=== PATIENT | female | born 1990 | race African-American/Black ===

== ENCOUNTER 2021-02-14 08:23 | Emergency (ER) | payer OTHER ==
[2021-02-14 08:31] VITALS: BP 104/70; PULSE 94; TEMP 97; BMI 34.4
[2021-02-14] MEDS ORDERED: ACETAMINOPHEN 500 MG TABLET (FP) PO ONE (08:56)
[2021-02-14] MEDS ORDERED: ACETAMINOPHEN 325 MG TABLET (FP) ONE (09:01)
== END 2021-02-14 09:40 | disposition home or self-care (01) ==
LOC: JER 08:23
DX: R60.0 Localized edema (principal)
CPT/HCPCS: 99283-25

== ENCOUNTER 2021-05-05 13:45 | Inpatient (IN) | payer OTHER ==
[2021-05-05] MEDS ORDERED: DINOPROSTONE 10 MG VAGINAL SUPPOSITORY VG ONE (14:15)
[2021-05-05 14:54] VITALS: BMI 36.9
[2021-05-05 15:24] LABS: BASO % 0.3 % (0-2.0); EOS % 0.8 % (0-4.5); HEMATOCRIT 36.4 % (32.4-45.2); HEMOGLOBIN 12.4 GM/dL (10.7-15.3); LYMPH % 25.1 % (8-40); MCH 31.5 pg (25.7-33.7); MCHC 34.2 g/dl (32.0-36.0); MEAN CELL VOLUME 92.1 fl (80-96); MEAN PLT VOLUME 7.9 fl (7.5-11.1); MONO % 16.7 % (3.8-10.2); NEUT % 57.1 % (42.8-82.8); PLATELET COUNT 237 10^3/uL (134-434); RBC 3.96 M/mm3 (3.60-5.2); RDW 14.3 % (11.6-15.6); WHITE BLOOD COUNT 7.3 K/mm3 (4.0-10.0)
[2021-05-05 15:33] LABS: INR 0.91 (0.83-1.09); PROTHROMBIN TIME (PATIENT) 10.5 SEC (9.7-13.0)
[2021-05-05 15:35] LABS: ACTIVATED PTT 23.3 SECONDS (25.2-36.5)
[2021-05-05 15:46] LABS: BLOOD UREA NITROGEN 14.6 mg/dL (7-18); CALCIUM 9.2 mg/dL (8.5-10.1)
[2021-05-05 15:50] LABS: CREATININE 0.7 mg/dL (0.55-1.3)
[2021-05-05 18:04] LABS: COCAINE, UR NEGATIVE (NEGATIVE); METHADONE, UR NEGATIVE (NEGATIVE)
[2021-05-05 18:06] LABS: PHENCYCLIDINE,URINE NEGATIVE (NEGATIVE); URINE BARBITURATES NEGATIVE (NEGATIVE); URINE BENZODIAZEPINES NEGATIVE (NEGATIVE)
[2021-05-05 18:07] LABS: OPIATES, URI NEGATIVE (NEGATIVE); URINE AMPHETAMINES NEGATIVE (NEGATIVE)
[2021-05-05 19:13] LABS: ALBUMIN 2.9 g/dl (3.4-5.0)
[2021-05-05 19:15] LABS: URIC ACID 5.4 mg/dL (2.6-7.2)
[2021-05-05 19:17] LABS: BILIRUBIN,DIRECT 0.1 mg/dL (0.0-0.2)
[2021-05-05 19:18] LABS: BILIRUBIN,TOTAL 0.2 mg/dL (0.2-1); TOT PROT 6.5 g/dl (6.4-8.2)
[2021-05-05 19:29] LABS: URINE APPEARANCE CLEAR; URINE BILIRUBIN NEGATIVE (NEGATIVE); URINE COLOR YELLOW; URINE GLUCOSE (UA) NEGATIVE (NEGATIVE); URINE KETONE NEGATIVE (NEGATIVE); URINE LEUK ESTERASE NEGATIVE (NEGATIVE); URINE NITRITE NEGATIVE (NEGATIVE); URINE PROTEIN NEGATIVE (NEGATIVE); URINE UROBILINOGEN 0.2 mg/dL (0.2-1.0)
[2021-05-05] MEDS: DEXTROSE 5%-LACTATED RINGERS 1,000 ML IV SCH (20:00)
[2021-05-05 20:06] LABS: RETICULOCYTES 3.53 % (0.5-1.5)
[2021-05-05 20:21] LABS: URIC ACID 5.1 mg/dL (2.6-7.2)
[2021-05-06] MEDS ORDERED: DINOPROSTONE 10 MG VAGINAL SUPPOSITORY VG ONE (07:15)
[2021-05-06] MEDS: DEXTROSE 5%-LACTATED RINGERS 1,000 ML IV SCH (19:50)
[2021-05-06] MEDS ORDERED: OXYTOCIN 20 UNITS in 0.9% NS 20 UNIT/1,000 ML INFUS.BAG IV ONE (21:52)
[2021-05-06] MEDS ORDERED: morphine SULFATE/PF 1 MG/2 ML (2cc Syringe - QUVA) ONE (21:53)
[2021-05-06] MEDS ORDERED: CLINDAMYCIN PHOSPHATE 600 MG/4 ML VIAL ONE (22:15)
[2021-05-06] MEDS ORDERED: ONDANSETRON 4 MG/2 ML VIAL ONE (22:29)
[2021-05-06] MEDS ORDERED: OXYTOCIN 10 UNITS/ML VIAL ONE (23:07)
[2021-05-06] MEDS ORDERED: PROPOFOL 20 ML ONE ×2 (23:16→23:33)
[2021-05-06 23:32] LABS: CORD BASE EXCESS -3.8 mmol/L (0-2); CORD PCO2 53.5 mmHg (30-78); CORD pH 7.269 (7.14-7.44)
[2021-05-06 23:33] LABS: CORD BASE EXCESS -5.1 mmol/L (0-2); CORD HCO3 22.7 mmHg (20-29); CORD PCO2 52.1 mmHg (30-78); CORD pH 7.257 (7.14-7.44)
[2021-05-07] MEDS ORDERED: METHYLERGONOVINE MALEATE 0.2 MG/1 ML AMP IM PRN (00:06)
[2021-05-07] MEDS ORDERED: ACETAMINOPHEN 325 MG TABLET (FP) PO PRN (00:06)
[2021-05-07] MEDS ORDERED: ONDANSETRON 4 MG/2 ML VIAL IVPUSH PRN (00:07)
[2021-05-07] MEDS ORDERED: OXYTOCIN 20 UNITS in 0.9% NS 20 UNIT/1,000 ML INFUS.BAG IV SCH (00:15)
[2021-05-07] MEDS ORDERED: OXYTOCIN 20 UNITS in 0.9% NS 20 UNIT/1,000 ML INFUS.BAG IV ONE (01:06)
[2021-05-07] MEDS ORDERED: KETOROLAC TROMETHAMINE 30 MG/1 ML VIAL IVPUSH PRN (02:15)
[2021-05-07] MEDS: CLINDAMYCIN 600MG PREMIX IVPB 600 MG/50 ML BAG IVPB SCH ×4 (02:22→23:42)
[2021-05-07] MEDS: ACETAMINOPHEN 1000 MG/100 ML BAG IVPB PRN ×3 (03:20→22:33)
[2021-05-07] MEDS: DEXTROSE 5%-LACTATED RINGERS 1,000 ML IV SCH ×2 (03:56→17:45)
[2021-05-07] MEDS ORDERED: oxyCODONE HCL 5 MG TABLET PO PRN (12:06)
[2021-05-07] MEDS: SIMETHICONE 80 MG TAB.CHEW (FP) PO PRN (14:02)
[2021-05-07] MEDS: oxyCODONE HCL 5 MG TABLET PO PRN ×2 (16:26→16:57)
[2021-05-07 23:48] LABS: BASO % 0.1 % (0-2.0); HEMATOCRIT 34.7 % (32.4-45.2); HEMOGLOBIN 11.8 GM/dL (10.7-15.3); LYMPH % 7.4 % (8-40); MCH 31.4 pg (25.7-33.7); MCHC 33.9 g/dl (32.0-36.0); MEAN CELL VOLUME 92.6 fl (80-96); MEAN PLT VOLUME 7.6 fl (7.5-11.1); MONO % 7.2 % (3.8-10.2); NEUT % 85.3 % (42.8-82.8); PLATELET COUNT 224 10^3/uL (134-434); RBC 3.74 M/mm3 (3.60-5.2); RDW 14.3 % (11.6-15.6); WHITE BLOOD COUNT 14.7 K/mm3 (4.0-10.0)
[2021-05-08 00:10] LABS: ALBUMIN 2.2 g/dl (3.4-5.0); BLOOD UREA NITROGEN 5.3 mg/dL (7-18)
[2021-05-08 00:13] LABS: CREATININE 0.7 mg/dL (0.55-1.3)
[2021-05-08 00:14] LABS: BILIRUBIN,TOTAL 0.5 mg/dL (0.2-1); TOT PROT 5.5 g/dl (6.4-8.2)
[2021-05-08] MEDS: CLINDAMYCIN 600MG PREMIX IVPB 600 MG/50 ML BAG IVPB SCH ×4 (03:56→22:00)
[2021-05-08] MEDS: LACTATED RINGERS SOLUTION 1,000 ML/1,000 ML INFUS.BAG IV SCH ×2 (05:00→23:40)
[2021-05-08] MEDS: ACETAMINOPHEN 1000 MG/100 ML BAG IVPB PRN ×3 (05:06→23:41)
[2021-05-08] MEDS: SIMETHICONE 80 MG TAB.CHEW (FP) PO PRN ×2 (05:28→18:00)
[2021-05-08 09:06] LABS: BASO % 0.2 % (0-2.0); HEMATOCRIT 35.3 % (32.4-45.2); HEMOGLOBIN 12.1 GM/dL (10.7-15.3); LYMPH % 7.2 % (8-40); MCH 32.1 pg (25.7-33.7); MCHC 34.3 g/dl (32.0-36.0); MEAN CELL VOLUME 93.3 fl (80-96); MEAN PLT VOLUME 7.2 fl (7.5-11.1); MONO % 8.4 % (3.8-10.2); NEUT % 84.2 % (42.8-82.8); PLATELET COUNT 210 10^3/uL (134-434); RBC 3.78 M/mm3 (3.60-5.2); RDW 14.5 % (11.6-15.6)
[2021-05-08 09:32] LABS: ALBUMIN 2.2 g/dl (3.4-5.0); BLOOD UREA NITROGEN 4.9 mg/dL (7-18); CALCIUM 8.7 mg/dL (8.5-10.1)
[2021-05-08 09:36] LABS: CREATININE 0.7 mg/dL (0.55-1.3)
[2021-05-08 09:37] LABS: BILIRUBIN,TOTAL 0.7 mg/dL (0.2-1); TOT PROT 5.6 g/dl (6.4-8.2)
[2021-05-09] MEDS: CLINDAMYCIN 600MG PREMIX IVPB 600 MG/50 ML BAG IVPB SCH ×4 (04:12→22:00)
[2021-05-09] MEDS: ACETAMINOPHEN 1000 MG/100 ML BAG IVPB PRN (09:03)
[2021-05-09] MEDS: DEXTROSE 5%-LACTATED RINGERS 1,000 ML IV SCH (09:44)
[2021-05-09] MEDS ORDERED: oxyCODONE HCL 5 MG TABLET PO PRN (10:32)
[2021-05-09] MEDS ORDERED: AZTREONAM 1 GM in DEXTROSE 5%-WATER - 50 ML IVPB SCH ×3 (10:45→18:00)
[2021-05-09] MEDS: AZTREONAM 1 GM in DEXTROSE 5%-WATER - 50 ML IVPB SCH ×2 (12:23→19:36)
[2021-05-09] MEDS: MULTIVITAMINS (DAILY MVI) TABLET (FP) PO SCH (13:52)
[2021-05-09] MEDS: IBUPROFEN 600 MG TABLET (FP) PO PRN (19:53)
[2021-05-10] MEDS: AZTREONAM 1 GM in DEXTROSE 5%-WATER - 50 ML IVPB SCH ×3 (03:51→17:50)
[2021-05-10] MEDS: CLINDAMYCIN 600MG PREMIX IVPB 600 MG/50 ML BAG IVPB SCH ×4 (04:38→22:45)
[2021-05-10 09:52] LABS: BASO % 0.1 % (0-2.0); EOS % 1.3 % (0-4.5); HEMATOCRIT 35.6 % (32.4-45.2); HEMOGLOBIN 12.2 GM/dL (10.7-15.3); LYMPH % 10.3 % (8-40); MCHC 34.4 g/dl (32.0-36.0); MEAN PLT VOLUME 7.3 fl (7.5-11.1); MONO % 10.7 % (3.8-10.2); NEUT % 77.6 % (42.8-82.8); PLATELET COUNT 252 10^3/uL (134-434); RBC 3.83 M/mm3 (3.60-5.2); RDW 14.4 % (11.6-15.6); WHITE BLOOD COUNT 9.9 K/mm3 (4.0-10.0)
[2021-05-10] MEDS: IBUPROFEN 600 MG TABLET (FP) PO PRN ×2 (10:40→16:31)
[2021-05-10] MEDS: MULTIVITAMINS (DAILY MVI) TABLET (FP) PO SCH (10:40)
[2021-05-10] MEDS: SIMETHICONE 80 MG TAB.CHEW (FP) PO PRN (16:31)
[2021-05-11] MEDS: AZTREONAM 1 GM in DEXTROSE 5%-WATER - 50 ML IVPB SCH ×2 (02:14→09:18)
[2021-05-11] MEDS: IBUPROFEN 600 MG TABLET (FP) PO PRN (03:17)
[2021-05-11] MEDS: SIMETHICONE 80 MG TAB.CHEW (FP) PO PRN (03:17)
[2021-05-11 04:52] VITALS: TEMP 98.2
[2021-05-11] MEDS: CLINDAMYCIN 600MG PREMIX IVPB 600 MG/50 ML BAG IVPB SCH ×2 (05:12→10:03)
[2021-05-11 11:22] VITALS: BP 114/74; PULSE 97
[2021-05-11] MEDS: MULTIVITAMINS (DAILY MVI) TABLET (FP) PO SCH ×2 (11:27→11:52)
== END 2021-05-11 15:44 | disposition home or self-care (01) | DRG 540 ==
LOC: JLDR 13:45 → J3W 05-07 03:27
PROVIDERS: ADMIT Obstetrics & Gynecology; ATTEND Obstetrics & Gynecology
PROC: 10D00Z1 Extraction of Products of Conception, Low, Open Approach (ICD-10-PCS; principal; 2021-05-07)
DX: O48.0 Post-term pregnancy (principal); O61.9 Failed induction of labor, unspecified; O75.2 Pyrexia during labor, not elsewhere classified; Z3A.41 41 weeks gestation of pregnancy; Z37.0 Single live birth
CPT/HCPCS: 36415; 36600; 71046-TC-FY; 80048; 80053; 80076; 80307; 81003; 82803; 82977; 83010; 84450; 84460; 84550; 85025; 85032; 85045; 85610; 85730; 86780; 86850; 86900; 86901; 87040; 87086; 87186; 88307-TC; 94010; C9803; U0003; U0005

== ENCOUNTER 2023-01-16 18:12 | Emergency (ER) | payer OTHER ==
[2023-01-16 18:53] VITALS: BP 122/78; PULSE 68; RESP 19; TEMP 98.6; BMI 32.9
== END 2023-01-16 19:55 | disposition home or self-care (01) ==
LOC: JERFT 18:12 → JER 18:12 → JERFT 19:55
DX: K08.89 Other specified disorders of teeth and supporting structures (principal)
CPT/HCPCS: 99283-25

== ENCOUNTER 2024-10-02 14:54 | Observation (INO) | payer OTHER ==
[2024-10-02 14:59] VITALS: BMI 29.1
[2024-10-02 16:54] LABS: EPI CELLS >36 /uL (0-25.1); HYALINE CASTS 2 /uL (0-3.1); URINE APPEARANCE CLEAR; URINE BACTERIA 473 /uL (0-1359); URINE BILIRUBIN NEGATIVE (NEGATIVE); URINE COLOR YELLOW; URINE GLUCOSE (UA) NEGATIVE (NEGATIVE); URINE KETONE TRACE (NEGATIVE); URINE LEUK ESTERASE NEGATIVE (NEGATIVE); URINE NITRITE NEGATIVE (NEGATIVE); URINE PROTEIN TRACE (NEGATIVE); URINE RBC 10 /uL (0-23.9); URINE UROBILINOGEN 1.0 mg/dL (0.2-1.0); URINE WBC 20 /uL (0-25.8)
[2024-10-02] MEDS ORDERED: ACETAMINOPHEN 500 MG TABLET (FP) ONE (17:02)
[2024-10-02 17:04] LABS: ABSOLUTE IMMATURE GRANULOCYTES 0.02 x10^3/uL (0.0-0.031); BASOPHILS # 0.02 x10^3/uL (0.01-0.08); EOSINOPHIL % 1.1 % (0.7-5.8); EOSINOPHILS # 0.07 x10^3/uL (0.04-0.36); MCHC 33.0 g/dl (32.2-35.5); MEAN CELL VOLUME 95.0 fl (79.4-94.8); MEAN PLT VOLUME 8.7 fl (9.4-12.3); MONOCYTE # 0.67 x10^3/uL (0.24-0.86); MONOCYTE % 10.8 % (4.7-12.5); RDW 12.4 % (12.1-16.8)
[2024-10-02] MEDS: ACETAMINOPHEN 1000 MG/100 ML BAG IVPB ONE (17:05)
[2024-10-02] MEDS: SODIUM CHLORIDE 1,000 ML IV STA (17:05)
[2024-10-02 17:32] LABS: CO2 25.0 mmol/L (21-32); GLUCOSE,RANDOM 100.0 mg/dL (74-106)
[2024-10-02 17:35] LABS: CREATININE 0.6 mg/dL (0.55-1.3); SGOT/AST 12.0 U/L (15-37); SGPT/ALT 20.0 U/L (13-61)
[2024-10-02 17:37] LABS: TOT PROT 6.3 g/dl (6.4-8.2)
[2024-10-02 17:38] LABS: ALK PHOS 73.0 U/L (45-117)
[2024-10-02 21:42] LABS: HCV DIAGNOSTIC IN-HOUSE W/RFLX NON-REACTIVE (NONREACTIVE)
[2024-10-02 22:26] LABS: HIV INTERPRETATION NEGATIVE (NEGATIVE)
[2024-10-03] MEDS ORDERED: BUPIVACAINE HCL/PF 0.5% (5MG/ML) 10 ML VIAL ONE (00:39)
[2024-10-03] MEDS ORDERED: PROPOFOL 20 ML ONE ×2 (00:45→01:23)
[2024-10-03] MEDS ORDERED: MIDAZOLAM HCL 2 MG/2 ML SINGLE DOSE VIAL ONE (00:46)
[2024-10-03] MEDS ORDERED: ROCURONIUM BROMIDE 50 MG/5 ML SYRINGE ONE ×2 (00:46→02:06)
[2024-10-03] MEDS ORDERED: SUGAMMADEX SODIUM 200 MG/2 ML VIAL ONE ×2 (01:29→03:16)
[2024-10-03] MEDS: BUPIVACAINE HCL/PF 0.5% (5MG/ML) 10 ML VIAL IJ ONE ×2 (03:19)
[2024-10-03] MEDS ORDERED: ONDANSETRON 4 MG/2 ML VIAL IVPUSH PRN (03:30)
[2024-10-03] MEDS: ACETAMINOPHEN 1000 MG/100 ML BAG IVPB ONE (03:44)
[2024-10-03] MEDS ORDERED: ACETAMINOPHEN 1000 MG/100 ML BAG IVPB PRN (03:57)
[2024-10-03] MEDS: LACTATED RINGERS SOLUTION 1,000 ML IV SCH (04:04)
[2024-10-03 09:07] LABS: MCHC 32.2 g/dl (32.2-35.5); MEAN CELL VOLUME 96.2 fl (79.4-94.8); MEAN PLT VOLUME 9.0 fl (9.4-12.3); RDW 12.1 % (12.1-16.8)
[2024-10-03 13:16] VITALS: BP 133/86; PULSE 74; RESP 16; TEMP 98.1
== END 2024-10-03 10:50 | disposition home or self-care (01) ==
LOC: JER 14:54 → JASUSAT 23:25 → JERBED 23:26 → INTOOBSV 23:26 → UNDOADMOB 23:26 → JERBED 10-03 00:49 → J5S 10-03 04:43
PROVIDERS: ADMIT Obstetrics & Gynecology; ATTEND Obstetrics & Gynecology
PROC: 3E033NZ Introduction of Analgesics, Hypnotics, Sedatives into Peripheral Vein, Percutaneous Approach (ICD-10-PCS; 2024-10-03)
PROC: 0UT54ZZ Resection of Right Fallopian Tube, Percutaneous Endoscopic Approach (ICD-10-PCS; principal; 2024-10-03 00:31)
DX: O00.101 Right tubal pregnancy without intrauterine pregnancy (principal); Z88.0 Allergy status to penicillin; Z72.0 Tobacco use; Z88.8 Allergy status to other drugs, medicaments and biological substances
CPT/HCPCS: 36415; 76817-TC; 80053; 81003; 84702; 84703; 85025; 86803; 86922; 87086; 87389; 88305-TC; 94760; 96374; 96376; 99285-25; G0378